=== PATIENT | female | born 1985 | race Caucasian/White ===

== ENCOUNTER 2023-05-03 10:39 | Outpatient (CLI) | payer BC, SELFPAY ==
[2023-05-03 10:50] VITALS: PULSE 87; O2SAT 99
--- NOTE | 2023-05-03 10:57 | CRLHL7_ITS ---
For Patients: As a result of the Century Cures Act, medical imaging exams and procedure reports are released immediately into your electronic medical record. You may view this report before your referring provider. If you have questions, please contact your health care provider. INDICATION: tachycardia COMPARISON: 04/05/2023 TECHNIQUE: Real time wolf scale imaging of the fetus was performed. Without non-stress testing. FINDINGS: Sonographic imaging demonstrates a single living intrauterine gestation. Fetus demonstrates a regular cardiac rate of 163 beats per minute. Fetus has a vertex position. The amniotic fluid volume appears normal and there is a single deepest pocket measurement of 5.2 cm. The fetus was active and demonstrated normal breathing movements. There was normal flexion and extension of the trunk and extremities. IMPRESSION: Normal biophysical profile score of 8 out of 8. Dictated by Tejas Vasquez MD @ 05/03/2023 11:41:41 AM (Electronically Signed)
[2023-05-03] MEDS: LACTATED RINGERS 1000 ML 1,000 ML IV (11:08)
[2023-05-03 11:11] VITALS: BP 117/68; PULSE 96
[2023-05-03 11:12] VITALS: RESP 16; TEMP 37
[2023-05-03 11:52] LABS: Appearance Urine Clear (Clear); Bilirubin Urine Negative (Negative); Blood Urine Negative (Negative); Color Urine Yellow (Yellow); Glucose Urine Negative (Negative); Ketones Urine Negative (Negative); Leukocyte Esterase Urine Negative (Negative); Nitrite Urine Negative (Negative); Protein Urine Negative (Negative); Specific Gravity Urine 1.015 (1.000-1.030); Urobilinogen Urine 0.2 (0.2-1.0)
--- NOTE | 2023-05-03 17:01 | PC.OBNST ---
NST Note NST Note Start: 05/03/23 10:57 Freq: ONCE Status: Active Protocol: Document 05/03/23 13:55 WK (Rec: 05/03/23 17:01 WK [id number]) NST Note 2 Para (# of births) 1 EDC 05/30/23 Gestational Age In Weeks & Days 36 Weeks & 1 Days High Risk Factors High Blood Pressure - Preexisting Patient Presented with Complaint(s) of Decreased movement Reactive Yes MAGGIE Vazquez RNC Date 05/03/23 Reactive Yes MAGGIE Lee RN Date 05/03/23 OB NST charge Yes Complete NST Note via Write Note Yes The provider's electronic signature indicates the NST is reactive/appropriate for gestational age. *Note to provider: If an addendum is required, open the patient's chart and click on the note under the Nurse/Allied Health tab.
--- NOTE | 2023-05-03 17:39 | PC.OBNST ---
NST Note NST Note Start: 05/03/23 10:57 Freq: ONCE Status: Discharge Protocol: Document 05/03/23 13:55 WK (Rec: 05/03/23 17:01 WK [id number]) NST Note 2 Para (# of births) 1 EDC 05/30/23 Gestational Age In Weeks & Days 36 Weeks & 1 Days Patient Presented with Complaint(s) of Other Other Complaints Seeing Dr. BRADLEY at the [facility] clinic for TOLAC consult. When on the EFM, difficult to determine FHR baseline. [facility]. Reactive Yes RN George RNC Date 05/03/23 Reactive Yes MAGGIE Lee RN Date 05/03/23 OB NST charge Yes Complete NST Note via Write Note Yes The provider's electronic signature indicates the NST is reactive/appropriate for gestational age. *Note to provider: If an addendum is required, open the patient's chart and click on the note under the Nurse/Allied Health tab.
== END 2023-05-03 13:55 | disposition home or self-care (01) ==
LOC: OB OUT 10:39 → OB 10:40
PROVIDERS: PCP Family Medicine; Visit Provider Family Medicine
DX: O16.3 Unspecified maternal hypertension, third trimester (principal); Z3A.36 36 weeks gestation of pregnancy
CPT/HCPCS: 59025; 76819; 81003; 99213; J7120

== ENCOUNTER 2023-05-11 22:56 | Inpatient (IN) | payer BC, SELFPAY ==
[2023-05-11] VITALS (36 sets, daily range): BP systolic 89–157; BP diastolic 43–78; PULSE 67–214; RESP 16; TEMP 36.4; O2SAT 80–100
[2023-05-11] MEDS: LACTATED RINGERS 1000 ML 1,000 ML 1200 ML IV (20:20)
[2023-05-11] MEDS: CEFAZOLIN 2 GM INJ IVP (20:30)
[2023-05-11] MEDS: AZITHROMYCIN 500 MG in 0.9 % SODIUM CHLORIDE 250 ml 250 ML 255 MG IVPB (20:35)
[2023-05-11] MEDS: LIDOCAINE 2% (PF) 5 ML VIAL EPIDURAL (20:57)
[2023-05-11] MEDS: ROPIVACAINE 0.2% 100 ml 100 ML 12 MG EPIDURAL (20:57)
[2023-05-11] MEDS: fentaNYL 100 MCG/2 ML inj INTRATHECA (21:10)
[2023-05-11] MEDS: LACTATED RINGERS 1000 ML 1,000 ML 125 ML IV (21:10)
[2023-05-11] MEDS: PHENYLEPHRINE 100 MCG/ML SYRINGE IVP ×4 (21:18→22:14)
[2023-05-11] MEDS: TERBUTALINE 1 MG/ML INJ 0.25 MG SUBCUT (21:57)
--- NOTE | 2023-05-11 22:12 | P.OBHP_ITS ---
OB - H&P: HPI Labor/Induction History of Present Illness Time Seen by Provider: 21:00 Date Seen: 05/11/23 Chief Complaint: The patient is a 37 year old 2 para 1 at 37 2/7 weeks gestation by LMP c/w 11wk US, who presents with contractions Chief complaint: contractions : 2 Para: 1 Date of last menstrual period: 08/23/22 Estimated date of delivery: 05/30/23 Gestational age based on last menstrual period: 37 Narrative: Keren Matthew is a 37 year old female at 37 2/7 by LMP c/w 11wk US presented with contractions. Contractions started around 10am and increased throughout the day. On presentation to center at 1908 she was 1cm/50% per RN. Pt reports ctxs started increasing significantly once here and SROM with clear fluid here at 1955. Her contractions have continued to increase. Pt is TOLAC pt. History of Present Dating criteria: based on LMP care: good care Abnormal ultrasound findings: anatomy US with pelviectasis, resolved on followup US complications comment: she has been getting weekly BPP's since 36wks due to hx abruption Medical complications: none Labs Blood type: AB (+) positive Rubella: immune RPR/VDLR: nonreactive GBS status: negative HBsAG: negative Meds Home Medications and Allergies Home Medications Medication Instructions Recorded Confirmed Type docosahexaenoic acid 200 mg 200 mg PO DAILY 05/03/23 05/11/23 History capsule ( DHA) escitalopram oxalate 20 mg tablet 20 mg PO DAILY 05/03/23 05/11/23 History Allergies Allergy/AdvReac Type Severity Reaction Status Date / Time doxycycline Allergy Intermediate Rash Verified 05/03/23 11:34 OB - H&P: Exam Physical Exam: Vital signs: Pulse BP Pulse Ox 116 H 103/50 L 98 05/11/23 21:55 05/11/23 21:55 05/11/23 22:08 Constitutional: Constitutional: no acute distress Routine HEENT Exam: Head: Present normal inspection Routine Respiratory Exam: Respiratory: Present CTA bilaterally Routine Cardiovascular Exam: Cardiovascular: RRR Detailed Labor and Delivery Exam: Patient Gravid: Yes Fetus A: Amniotic Membrane Status: SROM Amniotic membrane fluid description: Clear heart rate baseline: 120 monitor accelerations: Present monitor decelerations: 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 Requested and received epidural. Then developed recurrent deep variables with decels despite treating low bp, IVF and position changes. BP improved, deep variables continued. Pt hands and knees. Scalp placed, 7cm. here and notified of recurrent deep variables, recommended amnioinfusion and IUPC placed and amnioinfusion started. Continued with deep variables. r ecommended dose of terbutaline and this was given. Rechecked and 8cm. Contractions did space out but deep variables with contractions continue, lower into 40's and decision made to proceed with c/s. pt and updated during this entire course and all ?'s answered.
--- NOTE | 2023-05-11 22:20 | PM.OBCN1 ---
OB - CN: HPI Date of Consult Time Seen by Provider: 21:00 Date Seen: 05/11/23 Patient: Ed Patient Consult date: 05/11/23 Requesting Physician: Dilcia Javier MD Primary Care Provider: Sybil Morales, DO Consult Narrative Reason for consult: (VTOLAC, called in patient in active labor. ) Narrative: The patient is a 37 year old G 2 P 1001 at 37 2/7 weeks gestation that was admitted to the Center on 05/11/23 for VTOLAC. Patient presented to the unit with painful regular uterine contractions, progressed quickly to 6cm and per our institution protocol, OB and OR team called to be in house. I was also asked by Dr. Morales to review heart rate tracing. Since about 9:10pm started to show deeper variable/early decelerations, she had SROM and cervix had progressed quickly to 7cm but station still 0. 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, non smoker, no alcohol Smoking Status: Never smoker Meds Home Medications and Allergies Home Medications Medication Instructions Recorded Confirmed Type docosahexaenoic acid 200 mg 200 mg PO DAILY 05/03/23 05/11/23 History capsule ( DHA) escitalopram oxalate 20 mg tablet 20 mg PO DAILY 05/03/23 05/11/23 History Allergies Allergy/AdvReac Type Severity Reaction Status Date / Time doxycycline Allergy Intermediate Rash Verified 05/03/23 11:34 OB - H&P: Exam Physical Exam: Vital signs: Pulse BP Pulse Ox 117 H 91/53 L 98 05/11/23 22:19 05/11/23 22:19 05/11/23 22:08 OB - CN: A/P Assessment and Plan (1) Desires (vaginal after ) trial: Status: Acute (2) Previous section: Status: Acute (3) Non-reassuring heart rate or rhythm affecting management of mother: Status: Acute Plan Reviewed tracing, recommended amnioinfusion and terbutaline. They had already tried position changes, fluid bolus. Interventions attempted for about 40 minutes, I did check her cervix during this time and she had progressed to 8-9cm. Contractions did space out a bit more but heart rate having deeper variable decelerations down into the 40s during contraction (with good response of scalp stimulation and return to baseline.) Recommendation was given to proceed with urgent delivery. Discussed informed consent and this was signed with patient, confirmed that patient does accept blood transfusions in the case of an emergency. Moved to the OR quickly.
--- NOTE | 2023-05-11 22:38 | SUR.OPER ---
no time out due to emergency c section need.
--- NOTE | 2023-05-11 22:56 | CRLHL7_ITS ---
For Patients: As a result of the Century Cures Act, medical imaging exams and procedure reports are released immediately into your electronic medical record. You may view this report before your referring provider. If you have questions, please contact your health care provider. INDICATION: Incorrect surgical count. . TECHNIQUE: Abdomen/pelvis 1 view(s), AP supine. COMPARISON: None. FINDINGS/IMPRESSION: No evidence of a retained metallic density surgical instrument identified on 4 provided images. There appears to be an epidural catheter with redundant course, tip projects over the L3 vertebral body. Ill-defined curvilinear radiodensity projecting over the gastroesophageal junction at the level of T12, may be external. Correlate clinically. There is diastasis of the pubic symphysis. Nonspecific bowel gas pattern. Visualized lung bases are grossly clear. Dictated by Magen Thurston MD @ 05/11/2023 11:51:32 PM (Electronically Signed)
[2023-05-11] MEDS: KETOROLAC 30 MG/ML inj IVP (23:20)
--- NOTE | 2023-05-11 23:36 | P.OBPRC_ITS ---
Procedure Time Seen by Provider: 23:36 Date of procedure: 05/11/23 Pre-op diagnosis: Non reassuring heart rate tracing, failed vaginal trial of labor Post-op diagnosis: same (Suspected placental abruption) Procedure Done: only Will [facility] bill your pro fee for this procedure?: Yes Blood Loss Measurement Type: QBL (472mL) Bakri Used: No IV fluids (mL): 1,000 Surgeon: Randee Garsia MD Hat Body Inspector: None Anesthesia type: Epidural Findings: FINDINGS: Live-born male , cephalic presentation, Apgars 8 and 9 at 1 and 5 minutes respectively. weight 6 pounds 11 ounces. Nuchal cord x1. Small and scattered dark blood clots seen while removing placenta. Otherwise: Normal appearing uterus, tubes, and ovaries. Procedure Name: Repeat low transverse section Procedure Description: PROCEDURE: After obtaining informed consent, proceeded with urgent delivery and the patient was taken to the operating room where epidural anesthesia was obtained and found to be adequate. At the OR bed had a large gush of bloody/watery discharge, cervix was checked and found 9cm/anterior lip but station still 0. Routine Doppler evaluation of heart rate prior to preparation of the abdomen was unable to document heart rate and decision was made to proceed with emergent delivery. The abdomen was splashed with Betadine and draping placed. Unable to place Oropeza catheter or compression stockings prior to incision. Again confirmed adequacy of epidural and proceeded with incision. A Pfannenstiel skin incision was made with a scalpel along the line of the patient's previous Pfannenstiel scar. This incision was carried down to the underlying layer of fascia with the scalpel. The fascia was incised in the midline and the incision extended laterally.The rectus muscles were then in the midline. The Shaggy O retractor was then placed into the incision. The lower uterine segment was then incised in a transverse fashion with the scalpel. Upon entry into the uterus, bloody amniotic fluid was noted. The uterine incision was extended cephalo caudally with blunt finger fra ctionation. The infant's head was delivered atraumatically, nuchal cord identified and delivered through reduced afterwards. The nose and mouth were suctioned with the bulb suction. The cord was doubly clamped and cut, and the was handed off the field for evaluation. Umbilical cord section was clamped for collection of umbilical cord gases these were collected, not sent due to normal score. The placenta was delivered spontaneously with umbilical cord traction and fundal massage. The uterus was cleared of all clots and debris. The uterine incision was reapproximated in a running locking fashion with a 0 Vicryl suture. A 2nd layer of the same suture was used to imbricate in horizontal fashion. The gutters were inspected and cleared of blood clots. All instruments and ret ractors were removed. The subfascial tissues were carefully inspected and hemostasis assured. The fascia was reapproximated in a running fashion with a looped 0 Vicryl suture. The subcutaneous tissues were copiously irrigated. Hemostasis was assured. The subcutaneous fat layer was reapproximated with interrupted sutures of 3-0 Vicryl. The skin was closed in a subcuticular fashion with 4-0 Monocryl. LiquiBand and dressing were applied. The patient tolerated the procedure well. Sponge, lap, needle, and instrument counts were reported as correct x2. The patient was taken to the recovery room, awake, and in stable condition. She did receive 2 grams of IV Ancef and 500mg of Azithromycin preoperatively, also 1 g of TXA after cord clamp. Complications: None Condition: stable Disposition: floor OB Delivery Proc Additional Procedures Tubal Ligation at the time of : No
[2023-05-12] VITALS (42 sets, daily range): BP systolic 96–146; BP diastolic 52–96; PULSE 70–99; RESP 12–16; TEMP 36.4–37; O2SAT 96–100
--- NOTE | 2023-05-12 00:11 | P.ANES_ITS ---
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
--- NOTE | 2023-05-12 00:12 | W.PM.NB ---
Nerve Block Nerve Block Time Seen by Provider: 23:40 Date Seen: 05/11/23 Type of block requested by surgeon for post-operative analgesia: TAP Side: bilateral Time out performed: Yes Verification of patient name: Yes Verification of date of : Yes Name of person performing procedure: linda PAULINO Continuous monitoring Was continuous monitoring of O2 sat, B/P, quality assurance monitor final, recorded every 15 minutes?: Yes Procedure Checklist: sterile prep, needles and gloves Ultrasound guided. Images saved: Yes Medications given in 5ml increments after negative aspiration: Marcaine (30 ml total) %: 0.25 mL: 15 Needle gauge: 20 and Exparel (10 ml total) mL: 5 Needle gauge: 20 Patient tolerated procedure well: Yes Block Charges Block Charge (with Pro Fee): TAP Bilateral Use of Ultrasound Machine for Block: Yes- US Guidance/pain block
--- NOTE | 2023-05-12 00:15 | PM.ANBPRC ---
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 Status: Never smoker Meds Home Medications and Allergies Home Medications Medication Instructions Recorded Confirmed Type docosahexaenoic acid 200 mg 200 mg PO DAILY 05/03/23 05/11/23 History capsule ( DHA) escitalopram oxalate 20 mg tablet 20 mg PO DAILY 05/03/23 05/11/23 History Allergies Allergy/AdvReac Type Severity Reaction Status Date / Time doxycycline Allergy Intermediate Rash Verified 05/03/23 11:34 Results Vital Signs Vital Signs: Last Vital Signs Temp 97.5 F L 05/11/23 23:55 Pulse 94 05/12/23 00:07 Resp 16 05/12/23 00:07 BP 146/52 H 05/12/23 00:07 Pulse Ox 98 05/12/23 00:07 O2 Del Method Room Air 05/12/23 00:07 Anesthesia Procedures Epidural Insertion Patient Location: OB Start Time: 20:40 Stop Time: 21:40 Start Date: 05/11/23 Stop Date: 05/11/23 Reason for Block: procedure for pain Patient Position: sitting Performed By: Lisandra Sanchez Preanesthetic Checklist: IV checked, risks and benefits discussed, monitors and equipment checked, pre-op evaluation, timeout performed and anesthesia consent Prep: chlorhexidine gluconate Monitoring: blood pressure monitoring, continuous pulse oximetry and heart rate Approach: midline Vertebral Space: lumbar (1-5) Epidural Technique: SNEHAL saline Needle Type: Tuohy needle Injection Technique: continuous catheter (continuous catheter) Needle gauge: 17 Needle Length (cm): 10 cm Needle Insertion Depth (cm): 6 Catheter Gauge: 19 Catheter Type: multi-orifice Catheter at skin depth (cm): 12 Test Dose Result: negative and lidocaine 1.5% with epinephrine 1 to 200,000
[2023-05-12] MEDS: diphenhydrAMINE 50 MG/ML inj 12.5 MG IVP ×2 (02:03→02:44)
[2023-05-12] MEDS: KETOROLAC 30 MG/ML inj IVP ×4 (06:14→23:27)
[2023-05-12 06:55] LABS: Basophils Absolute Auto 0.04 K/uL (0.00-0.30); Basophils Percent Auto 0.4 % (0.0-3.0); Eosinophils Absolute Auto 0.06 K/uL (0.00-0.50); Eosinophils Percent Auto 0.5 % (0.0-7.0); Hematocrit 34.7 % (33.0-51.0); Immature Granulocytes Abs Auto 0.02 K/uL (0.00-0.30); Immature Granulocytes Pct Auto 0.2 %; Lymphocytes Absolute Auto 2.74 K/uL (0.90-2.90); Lymphocytes Percent Auto 24.9 % (20-44); Mean Corpuscular HGB Conc 35 gm/dL (32-36); Mean Corpuscular Hemoglobin 32 pg (26-34); Mean Corpuscular Volume 94 fL (80-100); Monocytes Percent Auto 6.9 % (0.0-11.0); Neutrophils Absolute Auto 7.38 K/uL (1.7-7.0); Neutrophils Percent Auto 67.1 % (42.0-72.0); Platelet Count* 246 K/uL (140-440); RDW Coefficient of Variation % 11.9 % (11.5-15.5)
[2023-05-12 07:09] LABS: Slide Review Reflex No
[2023-05-12] MEDS: DOCUSATE SODIUM 100 MG CAPSULE PO (08:25)
[2023-05-12 08:42] LABS: Basophils Percent Auto 0.1 % (0.0-3.0); Eosinophils Percent Auto 0.1 % (0.0-7.0); Immature Granulocytes Pct Auto 0.1 %; Lymphocytes Percent Auto 9.8 % (20-44); Mean Corpuscular HGB Conc 35 gm/dL (32-36); Mean Corpuscular Hemoglobin 33 pg (26-34); Mean Corpuscular Volume 94 fL (80-100); Monocytes Percent Auto 5.6 % (0.0-11.0); Neutrophils Percent Auto 84.3 % (42.0-72.0); Platelet Count* 185 K/uL (140-440); RDW Coefficient of Variation % 11.9 % (11.5-15.5); Red Blood Count 3.08 m/uL (4.00-5.20); White Blood Count* 14.94 K/uL (4.50-11.00)
[2023-05-12 08:45] LABS: Slide Review Reflex No
--- NOTE | 2023-05-12 09:36 | PM.OBPNVD1 ---
OB - PN:Subj Subjective Time Seen by Provider: 09:37 Date Seen: 05/12/23 Patient comments OB post-: pain well controlled, tolerating diet and flatus present status: and doing well [place] feeding status: exclusively Narrative: Patient feels well this morning, slightly tired but able to sleep between feedings, pain well controlled with tap blocks and oral pain medications, has not voided spontaneously after Oropeza catheter removal, tolerating regular diet without nausea, lochia minimal, mood stable. OB - PN: Obj Exam Physical Exam: Vital signs: Temp Pulse Resp BP Pulse Ox O2 Del Method 97.9 F 73 16 115/68 99 Room Air 05/12/23 08:02 05/12/23 08:02 05/12/23 08:02 05/12/23 08:02 05/12/23 08:02 05/12/23 08:02 Constitutional: Constitutional: no acute distress Routine HEENT Exam: ENT: Present mucous membranes moist Routine Abdominal Exam: Abdominal: Present distended and soft; Absent guarding or tenderness Fundus: Present firm Wound Management: Method: suture Drains: none Examination: Present dressed, clean and dry; Absent tenderness Urinary Catheter Management: Urethral: Cath placed during this visit: yes, but has since been removed by the nurse Urethral indwelling: Yes Reason for continuing: surgical procedure Insertion date: 05/11/23 Insertion time: 23:30 Removal date: 05/12/23 Removal time: 04:45 OB - PN: Obj Data Labs Labs: Laboratory Results - last 24 hr 05/11/23 05/12/23 05/12/23 20:15 07:02 07:02 WBC 11.00 14.94 H RBC 3.70 L 3.08 L Hgb 12.0 10.0 L 10.0 L Hct 34.7 29.0 L MCV 94 94 MCH 32 33 MCHC 35 35 RDW Coeff of Yudith 11.9 11.9 Plt Count 246 185 Neut % (Auto) 67.1 84.3 H Lymph % (Auto) 24.9 9.8 L [place] % (Auto) 6.9 5.6 Eos % (Auto) 0.5 0.1 Baso % (Auto) 0.4 0.1 Neut # (Auto) 7.38 H 12.60 H Lymph # (Auto) 2.74 1.50 [place] # (Auto) 0.80 0.80 Eos # (Auto) 0.06 0.00 Baso # (Auto) 0.04 0.00 Abs Immat Gran (auto) 0.02 0.00 Imm/Tot Granulo (auto) 0.2 0.1 Blood Type AB Positive Antibody Screen NEGATIVE OB - PN: A/P Delivery Assessment and Plan (1) Previous section: Status: Acute (2) Non-reassuring heart rate or rhythm affecting management of mother: Status: Acute (3) Anxiety: Problem details: Mood stable Status: Acute Assessment and Plan: Continue escitalopram (4) Advanced maternal age affecting , antepartum: Status: Acute (5) Asthma: Problem details: No current symptoms Status: Acute Assessment and Plan: Treatment p.r.n. (6) delivery delivered: Problem details: Recovering well Status: Acute Assessment and Plan: Continue routine postoperative management (7) Anemia due to acute blood loss: Problem details: Hemoglobin 10.0 postoperatively, asymptomatic Status: Acute Assessment and Plan: Start iron supplementation after bowel movement Plan 37-year-old 002 postop day 1 status post R LT CS for category 2 heart tracing and concern for abruption during active labor of TOLAC Plan day: 1 Plan: routine care Comments: Planned discharge home when meeting all postoperative and goals, likely day 2 or 3
[2023-05-12] MEDS: ESCITALOPRAM 10 MG TABLET 20 MG PO (23:28)
[2023-05-13] VITALS: BP 110/73; PULSE 74; RESP 14; TEMP 36.6; O2SAT 96
[2023-05-13] MEDS: KETOROLAC 30 MG/ML inj IVP (06:00)
[2023-05-13] MEDS: DOCUSATE SODIUM 100 MG CAPSULE PO (08:45)
[2023-05-13] MEDS: ACETAMINOPHEN 500 MG TABLET 1000 MG PO ×2 (08:45→15:05)
[2023-05-13 09:25] VITALS: BP 110/71; PULSE 75; RESP 16; TEMP 36.7; O2SAT 97
--- NOTE | 2023-05-13 09:27 | PM.OBDSVD1 ---
DS: Providers Provider Time Seen by Provider: : Date Seen: 05/13/23 Date of admission: 05/11/23 22:56 Primary care physician: Sybil Morales DO Admitting Clinician: Dilcia Javier MD Consults: Clinical Informatics Strategist Physician on discharge: Vickie Garsia MD Date of Discharge: 05/13/23 DS: Diagnosis Discharge Diagnosis (1) Anemia due to acute blood loss: Status: Acute Problem details: Hemoglobin 10.0 postoperatively, asymptomatic, start iron supplementation after 1st bowel movement (2) delivery delivered: Status: Acute Problem details: Recovering well (3) Non-reassuring heart rate or rhythm affecting management of mother: Status: Acute (4) Anxiety: Status: Acute Problem details: Mood stable, continue escitalopram (5) Previous section: Status: Acute (6) Advanced maternal age affecting , antepartum: Status: Acute (7) Asthma: Status: Acute Problem details: No current symptoms Exam Const: Vital Signs, click to edit/add: Vital Signs - 24 hr 05/12/23 10:10 05/12/23 11:10 05/12/23 11:58 Temperature 97.9 F Pulse Rate [Blood Pressure Cuff] 70 Respiratory Rate 16 16 16 Blood Pressure [Le ft Arm] 104/67 Pulse Oximetry 98 Oxygen Delivery Me thod Room Air 05/12/23 12:10 05/12/23 13:10 05/12/23 14:10 Temperature Pulse Rate [Blood Pressure Cuff] Respiratory Rate 16 16 16 Blood Pressure [Le ft Arm] Pulse Oximetry Oxygen Delivery Me thod 05/12/23 15:10 05/12/23 16:06 05/12/23 16:10 Temperature 97.8 F Pulse Rate [Blood Pressure Cuff] 88 Respiratory Rate 16 16 16 Blood Pressure [Le ft Arm] 102/66 Pulse Oximetry 96 Oxygen Delivery Me thod Room Air 05/12/23 17:10 05/12/23 19:10 05/12/23 20:00 Temperature 97.9 F Pulse Rate [Blood Pressure Cuff] 82 Respiratory Rate 16 16 16 Blood Pressure [Le ft Arm] 113/74 Pulse Oximetry 96 Oxygen Delivery Me thod Room Air 05/12/23 20:10 05/12/23 21:10 05/12/23 22:10 Temperature Pulse Rate [Blood Pressure Cuff] Respiratory Rate 16 16 14 Blood Pressure [Le ft Arm] Pulse Oximetry Oxygen Delivery Me thod 05/12/23 23:10 05/13/23 00:00 Temperature 98 F Pulse Rate [Blood Pressure Cuff] 74 Respiratory Rate 16 14 Blood Pressure [Le ft Arm] 110/73 Pulse Oximetry 96 Oxygen Delivery Me thod Room Air Common normals: no apparent distress, oriented x3, healthy appearing and alert GI: Common normals: Normal to inspection, nondistended, normoactive bowel sounds present, soft to palpation and non-tender Palpation: soft Other: Fundus firm below umbilicus Neuro: Common normals: oriented x3 Sensorium/orientation: alert OB - DS: Summary Hospital Course Hospital Course: The patient is a 37 year old G 2 P 1001 at 37 weeks 4 days gestation that was admitted to the Center on 05/11/23 for early labor by the family medicine service. She was admitted for TOLAC and continued labor spontaneously, however developed category 2 heart tracing remote from delivery with concern for possible placental abruption. She had an uncomplicated delivery, see her report for details. She delivered a viable male . She is breast feeding with some formula supplementation due to weight loss. the patient has done well, acute blood loss anemia noted but asymptomatic. Mood stable on her medication. Ambulating independently, pain well controlled on oral pain medications, tolerating regular diet, passing flatus, lochia minimal. She was deemed stable for discharge home on /postoperative day 2. Peripartum Data delivery method: Repeat Section Procedures: Procedures Operation Date: 05/11/23 22:15 Actual Procedure Side Surgeon p Section Vickie Garsia MD Saxe Gender: Male Discharge Plan: Home Time Spent with Patient Time attestation: Total time spent providing and/or coordinating discharge services: Time spent: Greater than 30 minutes Discharge Plan Discharge Disposition: Home, Self-Care Date of Admission: 05/11/23 22:56 Attending Provider on Discharge: Hernan Mcdaniel Primary Care Provider: Sybil Morales Condition: Stable Anticipated Discharge Date/Time: 05/13/23 11:37 Discharge Medications: New acetaminophen 500 mg Tablet 1,000 mg PO Q6H PRN (Reason: Pain) Qty: 30 0RF docusate sodium 100 mg Capsule 100 mg PO DAILY Qty: 30 0RF ibuprofen 600 mg Tablet 600 mg PO Q6H PRN (Reason: Pain) Qty: 30 0RF oxycodone 5 mg Tablet 5 - 10 mg PO Q4H PRN (Reason: Pain) 3 Days Qty: 12 0RF Continued escitalopram oxalate 20 mg tablet 20 mg PO DAILY DHA 200 mg capsule 200 mg PO DAILY Discharge Orders: Discharge Order (Routine); Ordered 05/13/23 Ordered By: Hrenan Mcdaniel Patient Education: OB Over the Counter Medication Information, OB /Breast Feeding Additional Instructions: Schedule follow-up appointment in clinic for 2 weeks and 6 weeks after discharge from the hospital No lifting greater than 15 lb or exercise or heavy activity for 6 weeks, no driving while using opioid medication or until you can stomp on the brakes without hesitating because of pain, nothing in the vagina for 6 weeks: No sex, no tampons, use only a pad. Call for vaginal bleeding soaking more than 1 pad per hour for more than 2 hours, fevers 100.4F or higher for more than 1 hour, foul-smelling discharge, increasing pain and cramping not controlled by pain medications, persistent nausea vomiting, concerns with the incision (bleeding, pus, opening up, becoming hard, red, tender), signs of preeclampsia including unrelenting headache, spots or sparkles in her vision, constant upper abdominal pain, signs of heart conditions including while at rest persistent dizziness, shortness of breath, chest pressure, chest pain, palpitations, signs of mood disorders including persistent feelings of sadness, hopelessness, depression, anxiety for more than 2 weeks. Activity Detail: Discharge Diet: Regular Follow Up Appointments: Sybil Morales DO [Primary Care Provider] - Forms: MyHealth Info Instructions DS:Data Additional Comments Additional comments: Hemoglobin 10.0
[2023-05-13] MEDS: IBUPROFEN 600 MG TABLET PO (13:38)
== END 2023-05-13 15:30 | disposition home or self-care (01) | DRG 540 ==
LOC: OB LAC 05-12 08:28 → OB 05-12 08:29
PROVIDERS: Admitting Provider Family Medicine; PCP Family Medicine; Visit Provider Obstetrics & Gynecology
PROC: 10D00Z1 Extraction of Products of Conception, Low, Open Approach (ICD-10-PCS; CPT 59514; principal; 2023-05-11 22:00)
DX: O34.211 Maternal care for low transverse scar from previous cesarean delivery (principal); O66.41 Failed attempted vaginal birth after previous cesarean delivery; O76 Abnormality in fetal heart rate and rhythm complicating labor and delivery; O45.93 Premature separation of placenta, unspecified, third trimester; J45.909 Unspecified asthma, uncomplicated; D62 Acute posthemorrhagic anemia; O99.344 Other mental disorders complicating childbirth; F41.9 Anxiety disorder, unspecified; O90.81 Anemia of the puerperium; Z3A.37 37 weeks gestation of pregnancy; Z37.0 Single live birth; G89.18 Other acute postprocedural pain
CPT/HCPCS: 01967; 01968; 36415; 59025; 64488; 74018; 76942; 85018; 85025; 86850; 86900; 86901; 88307; 99140; 99213; A4344; A9270; C9290; J0456; J0665; J0690; J1200; J1885; J2274; J2371; J2590; J2795; J3010; J3105; J7050; J7120